=== PATIENT | female | born 1970 | race Caucasian/White ===

== ENCOUNTER 2019-04-30 16:46 | Emergency (ER) | payer BC, SELFPAY ==
[2019-04-30 16:47] VITALS: BP 155/93; PULSE 106; RESP 18; TEMP 37; O2SAT 98; BMI 48.8
--- NOTE | 2019-04-30 17:08 | RAD_ITS ---
STUDY: X-RAY - LEFT ANKLE REASON FOR EXAM: Female, 48 years old. PT TWISTED LEFT ANKLE TODAY. LATERAL PAIN AND SWELLING. TECHNIQUE: 3 view(s) of the ankle. COMPARISON: None. FINDINGS: Visualized tibia is unremarkable. There is a transverse fracture along the inferior margin of the distal fibula. There is narrowing of the anterior tibiotalar articulation with spur. Small osseous density adjacent to the anterior distal tibia may be sequela of old injury or vascular phlebolith (given additional vascular phleboliths more proximally). Not likely represent an acute fracture. Small calcaneal spur demonstrated. The visualized subtalar, talonavicular, calcaneocuboid and tarsal articulations are normal. Lateral ankle soft tissue swelling. RAD/Ankle min 3 Views IMPRESSION: Lateral malleolus fracture (Pelaez A). Electronically Signed: Blane Borges MD (Brooks) at 17:27 EST , Service support ,
--- NOTE | 2019-04-30 17:42 | ED.DCSUM_ITS ---
History of Present Illness Chief Complaint: Lower Extremity Injury Informant: Patient Onset: Today Current Severity: Mild Maximum Severity: Moderate Narrative: Patient presents with pain to the left ankle and foot after rolling her ankle earlier today. She stepped off of the edge of a paved pad and rolled her ankle. She did fall to the ground but did not injure anything else. Patient states she was ambulatory for a while but after sitting at rest had difficulty getting back up and putting weight on her foot. - Past Medical History (1) History of cholecystectomy Status: Chronic (2) GERD (gastroesophageal reflux disease) Status: Chronic Past Medical History - Allergies and Home Meds Allergies/Adverse Reactions: Allergies No Known Allergies Allergy (Verified 04/30/19 16:47) Primary Care Physician: Jackson Castillo DO [Primary Care Provider] - Prior records reviewed: Yes Lives: Spouse/ Significant Other Smoking Status: Never smoker Review of Systems General: Denies: Chills, Fever Eyes: Denies: Visual changes - bilaterally ENT: Denies: Bilateral ear pain Cardiovascular: Denies: Chest pain Respiratory: Denies: Dyspnea, Cough Gastrointestinal: Denies: Abdominal pain, Nausea, Vomiting Musculoskeletal: Reports: Swelling, Extremity Pain Skin: Denies: Rash Neurological: Denies: Headache Hematologic: Denies: Easy bruising Allergy: Denies: Uticaria Physical Exam Vital Signs/Narrative: Vital Signs Temp Pulse Resp BP Pulse Ox 04/30/19 16:47 98.6 F 106 H 18 155/93 H 98 Inital Vital Signs reviewed: Yes General: Well nourished, Well developed Head: Normocephalic ENT: Moist mucous membranes Neck: Supple Cardiovascular: Regular rate, Regular rhythm Respiratory: No distress, CTA bilaterally Abdomen: Soft, Nontender Extremities: - - Tenderness palpation with mild edema of the lateral malleolus of the left ankle. She does have tenderness along the proximal aspect of the fifth metatarsal. Strong distal pulses are noted with good cap refill. No t enderness at the knee or hip. Skin: Normal color Neurological: Alert, Oriented x3 Psychological: Normal affect Diagnostic/Tx/Re-eval Impressions Ankle X-Ray 04/30/19 17:08 IMPRESSION: Lateral malleolus fracture (Eplaez A). Electronically Signed: Blane Borges MD (Brooks) at 17:27 EST , Service support , Foot X-Ray 04/30/19 17:45 IMPRESSION: 1. No acute findings. 2. Hallux valgus and bunion. 3. Mild degenerative changes of the tibiotalar joint. Electronically Signed: Aneta Toussaint MD at 18:13 EST Tel , Service support , 04/30/19 17:08 Ankle min 3 Views [RAD] Stat 04/30/19 17:45 Foot min 3 Views [RAD] Stat - Medical Decision Making Patient declined anything for pain while here. X-ray results are reviewed with her. She will be placed in a walking boot. She will see how well she can ambulate with this on but may be given crutches as well. She will follow-up with Dr. Ruelas, on-call for orthopedics. ED Disposition - Plan for ED Patient: Disposition: Home or Assisted Living Diagnosis: Ankle fracture Instructions: ANKLE FRACTURE (Distal Fibula), closed Prescriptions: Naproxen [Naprosyn] 500 mg PO BID PRN PRN #20 tablet PRN Reason: Pain Score 4-10/10 Referrals: Barak Ruelas DO [STAFF PHYSICIAN] - 1 Week
--- NOTE | 2019-04-30 17:45 | RAD_ITS ---
STUDY: X-RAY - LEFT FOOT CLINICAL: Female, 48 years old. Left foot pain after fall TECHNIQUE: 3 view(s) of the foot. COMPARISON: None. FINDINGS: No acute fracture or dislocation. Hallux valgus deformity with bunion. Degenerative spurring of the tibiotalar joint anteriorly. Joint spaces are otherwise well-maintained. Soft tissues and bony structures are otherwise unremarkable. RAD/Foot min 3 Views IMPRESSION: 1. No acute findings. 2. Hallux valgus and bunion. 3. Mild degenerative changes of the tibiotalar joint. Electronically Signed: Aneta Toussaint MD at 18:13 EST Tel , Service support ,
== END 2019-04-30 18:33 | disposition home or self-care (01) ==
PROVIDERS: Emergency Provider Emergency Medicine; Family Provider Family Medicine; PCP Family Medicine
DX: S82.892A Other fracture of left lower leg, initial encounter for closed fracture (principal); X50.1XXA Overexertion from prolonged static or awkward postures, initial encounter; Y93.9 Activity, unspecified; Y92.89 Other specified places as the place of occurrence of the external cause; Y99.9 Unspecified external cause status; K21.9 Gastro-esophageal reflux disease without esophagitis; Z90.49 Acquired absence of other specified parts of digestive tract; M20.12 Hallux valgus (acquired), left foot
CPT/HCPCS: 73610; 73630; 99284

== ENCOUNTER 2024-09-15 09:13 | Day surgery (SDC) | payer BC, SELFPAY ==
--- NOTE | 2024-09-14 16:52 | PCM.HP.BLA ---
History and Physical Date of Admission: 09/15/24 Expand All Collapse All Pre-Op History and Physical HPI: The patient is a 53 year old female presenting for pre-operative visit. She is scheduled for Hysteroscopy D&C and polypectomy, for PMB, Endometrial polyp on 09/15/24. Procedure discussed along with risks, benefits and complications. Other alternatives discussed for management. Consent form signed? Yes. PAST MEDICAL HISTORY PAST MEDICAL HISTORY Diagnosis Date ? Elevated blood pressure reading without diagnosis of hypertension 2022 PAST SURGICAL HISTORY PAST SURGICAL HISTORY Procedure Laterality Date ? CHOLECYSTECTOMY ? TONSILLECTOMY & ADENOIDECTOMY <AGE 11 ? TYMPANOSTOMY LOCAL/TOPICAL ANESTHESIA CURRENT MEDICATIONS Current Outpatient Medications Medication Sig Dispense Refill ? TURMERIC ORAL Take by mouth. ? glucosamine/chondr allred A sod (OSTEO BI-FLEX ORAL) Take by mouth once daily. ? omega-3/dha/epa/fish oil (OMEGA-3 FISH OIL ORAL) Take by mouth once daily. ? OTC NUTRITIONAL SUPPLEMENT once daily. Lion's Adalid- doesn't take often ? OTC NUTRITIONAL SUPPLEMENT once daily. ceylon cinnamon ? MULTIVITAMIN ORAL Take by mouth. ? calcium carbonate-vitamin D3 600 mg-20 mcg (800 unit) tablet Take by mouth. No current facility-administered medications for this visit. ALLERGIES: Patient has no active allergies. PERSONAL HISTORY: SOCIAL HISTORY Social History Tobacco Use ? Smoking status: Never ? Smokeless tobacco: Never Vaping Use ? Vaping status: Never Used Substance Use Topics ? Alcohol use: No ? Drug use: No FAMILY HISTORY: FAMILY HISTORY FAMILY HISTORY Problem Relation Age of Onset ? Hypothyroidism Mother ? Diabetes Father ? Heart Father pulmonary embolus following cabg ? Hypertension Brother ? Diabetes Maternal Grandmother ? Cancer Maternal Grandmother ? Heart Maternal Grandfather REVIEW OF SYMPTOMS: negative except as noted above PHYSICAL EXAMINATION: VITALS: Blood pressure 122/70, weight 122.5 kg (270 lb), last menstrual period 10/28/2022. GENERAL: The patient is well nourished, well hydrated in no acute distress. , The patient is oriented to time, place, and person. NECK: full range LUNGS: Clear to auscultation bilaterally. no wheezes, rhonchi or rales HEART: Regular rate and rhythm, Normal heart sounds, and No murmurs or gallops IMPRESSION: 53yo with PMB, endometrial polyp PLAN: Hysteroscopy, D&C, polypectomy with symphion Pre and post op instructions reviewed Pt has been counseled on risks/benefits and alternatives of surgery including but not limited to anesthesia, bleeding, infection,uterine perforation with subsequent injury to pelvic structures including bowel, bladder, ureters and vessels. Pt wishes to proceed with surgery at this time. I have reviewed and updated past medical and surgical history, medications and allergies Sonal Rodriguez MD Office Visit on 09/07/2024 Note viewed by patient
[2024-09-15] VITALS (10 sets, daily range): BP systolic 136–152; BP diastolic 72–84; PULSE 68–77; RESP 16; TEMP 36.3–36.9; O2SAT 92–97; BMI 50.0
[2024-09-15] MEDS: Lactated Ringers 1,000 ML 15 ML IV (09:45)
[2024-09-15 09:54] LABS: Internal QC Validated? YES +Cl - CLEAR BKGD; Pregnancy, Urine Negative Negative
--- NOTE | 2024-09-15 10:00 | PRE.ANES_ITS ---
ASA Classification* ASA Classification ASA Classification: 2 Assessment & Plan Anesthesia* Anesthesia Assessment Anesthesia Assessment: Discussed sedation and/or anesthesia options, risks, benefits, and alternatives with patient/parents/legal guardian/POA. Questions invited. The patient/parents/legal guardian/POA seems to understand and agrees to proceed with anesthesia plan. Reviewed the physical assessment, medical history, allergy history and patient home medications list prior to surgery/procedure/anesthetic and documented any changes. Performed airway and anesthesia risk assessments. Anesthesia Type Anesthesia Type: MAC Anesthesia Focused Assessment* Temperature: 98.5 F Pulse Rate: 77 Blood Pressure: 138/84 Respiratory Rate: 16 Pulse Ox: 97 Airway Assessment Mouth opens: >3 cm Mallampati Score: II Focused Labs Anesthesia Preop lab: CBC CHEMISTRY COAG Urine Test Negative Negative 09/15/24 09:40 09/15/24 Pre-Assessment Diagnosis/Proposed Procedure Planned Operative Procedure(s): Hysteroscopy,D&C Symphion, polypectomy, possible Liletta IUD insertion Anesthesia History Anesthesia History - microsoft windows engineer: Anesthesia History - microsoft windows engineer Hx Hospitalization No 09/08/24 09:27 Any Problems With Anesthesia No 09/08/24 09:27 Cholinesterase deficiency No 09/08/24 09:27 You/Your Family Experience No 09/08/24 09:27 fever (hyperthermia) with Relationship Recent Exposure to Contagious No 09/15/24 09:42 Disease Does patient have nerve No 09/08/24 09:27 stimulator Patient instructed to have device shut off --Does patient have Pacemaker No 09/15/24 09:42 or ICD? When Was Last Pacemaker Check QUESTION #4 FULL TEXT: You/Your Family Experience fever (hyperthermia) with Anesthesia Last Oral Intake Last Oral intake: Last Oral Intake NPO since 00:00 09/15/24 09:42 Meds taken in AM with sips of No 09/15/24 09:42 water? Meds patient instructed to take am of surgery PONV PONV - microsoft windows engineer: PONV - microsoft windows engineer Female Yes 09/08/24 09:27 HX of Motion Sickness No 09/08/24 09:27 HX of N/V After Surgery No 09/08/24 09:27 Non-Smoker Yes 09/08/24 09:27 Duration of Surgery greater No 09/08/24 09:27 than 60 minutes Number of Risk Factors 2 09/08/24 09:27 PONV Score Moderate Risk 09/08/24 09:27 Height & Weight Height & Weight: Anesthesia: Height & Weight Height 5 ft 2 in 09/15/24 09:42 Weight: 124 kg 09/15/24 09:42 Body Mass Index (BMI) 50.0 09/15/24 09:42 Respiratory Assessment Respiratory Assessment - microsoft windows engineer: Respiratory Tract Infection Hx - microsoft windows engineer Hx Respiratory Tract Infection No 09/08/24 09:27 STOP Sleep Apnea STOP Sleep Apnea - microsoft windows engineer: STOP Sleep Apnea - microsoft windows engineer Hx Hypertension No 09/08/24 09:27 Hx Sleep Apnea No 09/08/24 09:27 CPAP BIPAP Do you snore loudly (louder No 09/08/24 09:27 than talking or can be heard Do you often feel tired/ No 09/08/24 09:27 fatigued/ sleepy during daytime? Has anyone observed you stop No 09/08/24 09:27 breathing during sleep? STOP Results Negative 09/08/24 09:27 QUESTION #5 FULL TEXT : Do you snore loudly (louder than talking or can be heard through closed doors)? 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 Specify any problems Hx of Preganancy in last 3 No 09/08/24 09:27 Months Nurse Filling Out Transfusion JZOLLINGE 09/08/24 09:27 & Questions: Date: 09/08/24 09/08/24 09:27 Time: 09:30 09/08/24 09:27 Patient unable to answer at this time (ie. confused, unrespo /Reproduction History /Reproductive History - microsoft windows engineer: /Reproductive Hx- microsoft windows engineer Hx Now No 09/08/24 09:27 Gestational Age (in weeks): EDC: Hx Hx Para Hx Section SAB No 09/08/24 09:27 Active Medications Active Medications: Current Medications Generic Name Dose Route Start Last Admin Trade Name Freq PRN Reason Stop Dose Admin Lactated Ringer's 1,000 mls @ 15 mls/hr 09/15/24 09:45 09/15/24 09:45 IV 15 mls/hr .Q48H NYA Administration PFSH Medical History Wears contact lenses Heartburn Non-smoker Contact with and (suspected) exposure to other viral communicable diseases Acute pharyngitis, unspecified Home Medications ?Medication ?Instructions ?Recorded ?Last Taken ?Type multivitamin with folic acid 400 1 tab PO DAILY 09/14/24 History mcg tablet glucosamine-chondroitin 250 mg-200 2 tab PO .qd 09/14/24 History mg tablet (Osteo Bi-Flex) turmeric 400 mg capsule 500 mg PO .qd 05/26/2109/14 History calcium carb-ergocalciferol (vit 1 tab PO .qd 09/08/24 09/14/24 History D2) 600 mg calcium-200 unit tablet cinnamon bark 500 mg capsule 1,000 mg PO DAILY 5 09/14/24 History (Cinnamon) Allergy/AdvReac Type Severity Reaction Status Date / Time No Known Allergies Allergy Verified 09/15/24 09:32 Family History Father Diabetes Mother Thyroid disorder Surgical History Hx of cholecystectomy Social History Smoking Status: Never smoker Review of Systems (Anesthesia) ROS Narrative System reviewed and no additional complaints, except as documented.
--- NOTE | 2024-09-15 10:38 | PCM.DC ---
Discharge Instructions DC O2, CPAP, BIPAP needs Home O2 Discharge instructions: No Dressing / Incision May resume sexual activity in: 1 week Dressing / Incision Call your doctor if you observe: Fever of 101 or Higher, Inability to urinate, Using more than 1 pad per hour and Uncontrolled pain Follow Up Care Please Follow Up With: Sonal Byers MD When: I will call you with pathology results in 1-2 weeks, if you feel you need an appointment please call [phone] Test Results: Test results from this visit will be discussed in further detail at your follow-up appointment, if applicable. Discharge Plan Admission Attending Provider: Sonal Byers Primary Care Provider: TONYA LANDERS Instructions Print Language: Macedonian Discharge Orders/Prescriptions Prescriptions: No Action glucosamine-chondroitin [Osteo Bi-Flex] 250-200 mg tablet 2 tab PO .qd Rx Instructions: give after food/meal turmeric 400 mg capsule 500 mg PO .qd multivitamin with folic acid 1 TABLET tablet 1 tab PO DAILY calcium carbonate-vitamin D2 600 mg calcium- 200 unit tablet 1 tab PO .qd cinnamon bark [Cinnamon] 500 mg capsule 1,000 mg PO DAILY Referrals / Follow Up: TONYA LANDERS CRNP [Primary Care Provider] - Disposition Disposition (needs filled in before D/C Order can be placed): Home, Self Care
--- NOTE | 2024-09-15 10:39 | OP.PCM_ITS ---
Operative Report (Standard) Operative Information Date of Procedure: 09/15/24 Pre-Operative Diagnosis: AUB, endometrial polyp Post-Operative Diagnosis: same Surgery/Procedure Performed: Hysteroscopy, D&C, polypectomy with symphion screw machine operator swiss type: No Type of Anesthesia: MAC RN Documented Start/Stop Times: Operation Date: 09/15/24 10:55 Case Time Into Pre-Op 09/15/24 09:33 Out of Pre-Op 09/15/24 10:06 Anesthesia Start 09/15/24 10:10 Into Room 09/15/24 10:10 Procedure Start 09/15/24 10:21 Procedure End 09/15/24 10:29 Anesthesia End 09/15/24 10:35 Out of Room 09/15/24 10:35 Procedure Start Time: 10:21 Procedure Stop Time: 10:29 Select all DRAINS/GRAFTS/IMPLANTS that apply: None Estimated Blood Loss: <5 Fluids Replaced: 600 Specimen collected: Yes Description of specimen(s) removed: endometrial curettings, Endometrial polyp Description of surgery: Informed consent was obtained the patient was taken the operating room she was placed in supine position. She was given anesthesia. She was then placed in the [facility] where she was prepped and draped in the normal sterile fashion. At this time the weighted speculum was placed in the posterior fornix of vagina. Single-tooth tenaculum was used to gently grasp the anterior lip the cervix. At this time the uterine cavity was sounded to approximately 8 cm. Gentle dilatation was performed once adequate dilatation of the cervix was achieved the hysteroscope using normal saline as a distention medium was placed. Tubal ostia visualized. Symphion resecting device used to obtain endometrial curettings and to perform polypectomy. Tissue will be sent to pathology for evaluation. Tenaculum removed. Good hemostasis. Instrument, lap count correct x 2. Vaginal Sweep was negative. Surgical Findings: small endometrial polyp extending from posterior fundal aspect Complications Complications: No Admit VTE Documentation VTE Present on Admission: Yes VTE Mechan Device Prophylaxis: SCD's VTE Pharm Prophylaxis ordered?: No Reason prophylaxis not ordered: Treatment Not Indicated
--- NOTE | 2024-09-15 10:55 | EMB_PTH ---
PATIENT: KIMBERLY DOUGLASS [place] [facility] [id number] AGE/SX: 53/F ROOM: RE09/15/[address]: Dr. Sonal Byers, MDDOB: 1970 BED: DIS: 09/15/2024 SPEC #: [id number] RECD: 09/15/24 13:41 STATUS: BUD AURY #: [id number] NATALIE: 09/15/24 10:[address]: Sonal Byers DEPT: SURGICAL PATHOLOGY RECD BY: Suleman Keen ENTERED: 09/15/24 13:55 SP TYPE: ENDOM BX/C JASON DR: KRISTI FLOYD Tissues: A - Endometrium, NOS Procedures: Surgery Specimen Level IV HEADER OPERATION: Hysteroscopy, D&C, polypectomy PRE-OP DIAGNOSIS: Postmenopausal bleeding, endometrial polyp TISSUE SUBMITTED: A- Endometrial shavings MICROSCOPIC DIAGNOSIS A. Endometrium, curettage: * Mildly disordered proliferative endometrium. MICROSCOPIC DESCRIPTION Slides are reviewed. GROSS DESCRIPTION A. Received in formalin in a container labeled with the patient's name, date of , and endometrial shavings are multiple white-shultz fragments of soft tissue admixed with blood and mucus measuring 2.5 x 0.8 x 0.3 cm in aggregate. Submitted in toto in A1. [facility] 09-15-2024 CPT:[id number]
--- NOTE | 2024-09-15 12:03 | PCM.POST.ANE ---
Anesthesia: Postop Eval I Current Vital Signs Temperature: 97.3 F Pulse Rate: 69 Blood Pressure: 142/75 Respiratory Rate: 16 Pulse Ox: 97 Oxygen Delivery Method: Room Air Assessment Airway patent: Yes Spontaneous unlabored respirations: Yes Mental status: Awake and Calm nausea: No Vomiting: No Anesthesia Complication: No Fluid Hydration Crystalloid volume administer (ml): 600 Total IV fluid infused: 600 Progress Note Anesthesia document: Postop Eval 1 completed: Yes
--- NOTE | 2024-09-15 13:02 | POSTOPAN2_ITS ---
Anesthesia Postop Eval I Sum Postop Eval Completion status Anesthesia document: Postop Eval 1 completed: Yes Anesthesia Postop Eval I Summary Anesthesia Postop Eval I Summary: Anesthesia Postop Eval I: Assessment Summary Airway patent Yes 09/15/24 12:04 RN [email or web address] Spontaneous unlabored Yes 09/15/24 12:04 RN REGISTRY.[email or web address] respirations Mental status Awake,Calm 09/15/24 12:04 RN [email or web address] nausea No 09/15/24 12:04 RN [email or web address].JBLOU Vomiting No 09/15/24 12:04 RN [email or web address] Anesthesia Postop Eval I: Fluid Summary Crystalloid volume administer 600 09/15/24 12:04 RN REGISTRY.JBLOU (ml) Colloids volume administered ( ml) Blood Product volume administered (ml) Total IV fluid infused 600 09/15/24 12:04 RN [email or web address] Anesthesia Postop Eval I: Summary Notes Anesthesia Complication No 09/15/24 12:04 RN REGISTRY.[email or web address] Anesthesia Complication Comment: Post-operative progress note Anesthesia: Postop Eval II Evaluation Mental status: Awake Pain Level: 0 nausea: No Vomiting: No
--- NOTE | 2024-09-15 13:02 | PCM.POSTANE2 ---
Anesthesia Postop Eval I Sum Postop Eval Completion status Anesthesia document: Postop Eval 1 completed: Yes Anesthesia Postop Eval I Summary Anesthesia Postop Eval I Summary: Anesthesia Postop Eval I: Assessment Summary Airway patent Yes 09/15/24 12:04 KETTLE [email or web address] Spontaneous unlabored Yes 09/15/24 12:04 KETTLE [email or web address] respirations Mental status Awake,Calm 09/15/24 12:04 [email or web address] [email or web address] nausea No 09/15/24 12:04 [email or web address] [email or web address] Vomiting No 09/15/24 12:04 [email or web address] Anesthesia Postop Eval I: Fluid Summary Crystalloid volume administer 600 09/15/24 12:04 [email or web address] (ml) Colloids volume administered ( ml) Blood Product volume administered (ml) Total IV fluid infused 600 09/15/24 12:04 [email or web address] Anesthesia Postop Eval I: Summary Notes Anesthesia Complication No 09/15/24 12:04 KETTLE WORKER.[email or web address] Anesthesia Complication Comment: Post-operative progress note Anesthesia: Postop Eval II Evaluation Mental status: Awake Pain Level: 0 nausea: No Vomiting: No
== END 2024-09-15 12:01 | disposition home or self-care (01) ==
LOC: SDC 09:20 → AC 09:21
PROVIDERS: Anesthesiology; PCP Nurse Practitioner Adult Health; Referring Provider Obstetrics & Gynecology; Visit Provider Obstetrics & Gynecology
PROC: 0UB98ZZ Excision of Uterus, Via Natural or Artificial Opening Endoscopic (ICD-10-PCS; CPT 58558; principal; 2024-09-15 10:45)
DX: N93.9 Abnormal uterine and vaginal bleeding, unspecified (principal); N84.0 Polyp of corpus uteri; Z90.49 Acquired absence of other specified parts of digestive tract
CPT/HCPCS: 58558; 00952; 81025; 88305; J2405